=== PATIENT | female | born 1985 | race Caucasian/White ===

== ENCOUNTER 2016-11-20 17:12 | Emergency (ER) | payer OTHER ==
[~2016-11-20] VITALS: Ht 154.9 cm; Wt 45.6 kg
[~2016-11-20 17:12] MED LIST: FERR325T PO; MEDR150I IM
[2016-11-20 17:14] VITALS: BP 124/84; PULSE 101; TEMP 36.9; O2SAT 100; Ht 154.9 cm; Wt 45.6 kg
[2016-11-20] MEDS ORDERED: DEXAMETHASONE SOD INJ 10 MG/ML VIAL IM ONE (17:30)
[2016-11-20] MEDS ORDERED: MEDR150I19 IM (17:34)
--- NOTE | 2016-11-20 17:53 | EMERGENCY ROOM VISIT NOTE ---
History First contact with patient: 17:19 Chief Complaint: BITE Stated Complaint: CAT BITE History of Present Illness The patient is a 31 year old female who presents to the Emergency Room with complaints of bite. The patient presents to the emergency department with what she believes is a bite. She states that she was shopping today and did not notice any injury or bite. She states when she got home she began to develop itching and discomfort to the right lateral thigh. He states that since this occurred at 10:30 AM she has developed an area of ecchymosis. There is not any significant ulceration. She does not have any drainage. She has not had any chest or trouble breathing. She did not see anything bite her. She denies injury. Review of Systems A 10 system review of systems was completed with positives and pertinent negatives listed in the HPI. Past Medical/Surgical History Medical Problems: (1) Labor check (2) Vaginal delivery Surgical Problems: (1) H/O knee surgery Family History Cancer Heart disease Hypertension Social History Smoking Status: Never Smoker Alcohol Use: none Marital Status: Housing Status: lives with family Occupation Status: unemployed Current/Historical Medications Scheduled Medroxyprogesterone Acetate (C (Medroxyprogesterone Aceta), 150 MG IM Q3MO Physical Exam Vital Signs Date Time Temp Pulse Resp B/P (MAP) Pulse Ox O2 Delivery O2 Flow Rate FiO2 11/20/16 17:14 36.9 101 18 124/84 100 Room Air Physical Exam VITALS: Vitals are noted on the nurse's note and reviewed by myself. Vital signs stable. GENERAL: This is a 31 year old female, in no acute distress, nondiaphoretic, well-developed well-nourished. SKIN: There is a small open area without ulceration to the right lateral thigh. There is minimal surrounding ecchymosis without erythema. There is no fluctuance , drainage or lymphangitic streaking. There is no tenting of the skin. Capillary reflex less than 2 seconds. HEAD: Normocephalic atraumatic. EARS: The external ears are normal in appearance EYES: Pupils equal round and reactive to light and accommodation. Conjunctivae without injection, sclerae without icterus. Extraocular movements intact. NOSE: Patent, turbinates without inflammation or discharge. MOUTH: Mucous membranes moist. NECK: Supple without nuchal rigidity. No JVD. HEART: Regular rate and rhythm without murmurs gallops or rubs. LUNGS: Clear to auscultation bilaterally without wheezes, rales or rhonchi. No retractions or accessory muscle use. MUSCULOSKELETAL: No muscle atrophy, erythema, or edema noted. Full range of motion without joint tenderness in all extremities. minimal tenderness to the area of ecchymosis. Normal gait. Strength 5/5 throughout. NEURO: Patient was alert and oriented to person place and time. No focal neurological deficits. Medical Decision & Procedures Laboratory Results Test 11/20/16 18:15 Medications Administered Medications (Trade) Dose Ordered Sig/Carmen Route Start Time Stop Time Status Last Admin Dose Admin Dexamethasone Sodium Phosphate (Decadron Inj) 10 mg NOW ONCE IM 11/20/16 17:30 11/20/16 17:31 DC 11/20/16 17:37 10 MG Diphenhydramine HCl (Benadryl Cap) 25 mg NOW ONCE PO 11/20/16 17:30 11/20/16 17:31 DC 11/20/16 17:37 25 MG ED Course The patient was seen and examined. Previous visits were reviewed. The patient presents with what she believes was an insect bite. She does not recall seeing any insect. She states that that her right thigh became itchy earlier today read she then developed some ecchymosis around it. She states she did not get injured. She states she did not squeeze the area. There is no significant ulceration. There is no significant warmth. There is no fluctuance or drainage. The exact etiology is not clear. The patient was given IM Decadron and oral Benadryl in the emergency department. She stated it was feeling slightly improved. The patient also had a Lyme titer drawn. The area was outlined with a surgical marker. She was advised to watch the area closely over the next 24-48 hours. She should return to the ER if it is worsening. She should follow-up with her family doctor by the end of the week or early next week if it's not resolving. Medical Decision The differential diagnosis includes insect bite, Lyme disease, traumatic injury , among others Impression Primary Impression: Insect bite Departure Information Dispostion Home / Self-Care Condition GOOD Referrals Chayo Hooker D.O. (PCP) Patient Instructions ED Bite Insect, ED Bite Insect Brown Recluse Spider, ED Bite Sting Insect Local Allergic React, My [facility] Additional Instructions Return with worsening swelling, redness or ulceration We will contact you if the lyme test comes back positive Otherwise, recheck with your family doctor in the next week
[2016-11-20 19:20] LABS: LYME DISEASE AB IGG NEG (NEG); LYME DISEASE AB IGM NEG (NEG)
== END 2016-11-20 18:38 | disposition home or self-care (01) ==
LOC: C.EDB 17:13 → C.EDD 18:38
DX: S70.361A Insect bite (nonvenomous), right thigh, initial encounter (principal); W57.XXXA Bitten or stung by nonvenomous insect and other nonvenomous arthropods, initial encounter; Z98.890 Other specified postprocedural states; Z82.49 Family history of ischemic heart disease and other diseases of the circulatory system

== ENCOUNTER 2017-08-04 12:43 | Emergency (ER) | payer OTHER ==
[~2017-08-04 12:43] MED LIST changes: -FERR325T PO; -MEDR150I IM; +MEDR150I19 IM
[2017-08-04 12:49] VITALS: TEMP 36.8
--- NOTE | 2017-08-04 13:43 | EMERGENCY ROOM VISIT NOTE ---
History First contact with patient: 13:03 Chief Complaint: OTHER COMPLAINT Stated Complaint: MISCARRIAGE History of Present Illness The patient is a 31 year old female who presents to the Emergency Room with complaints of a possible miscarriage. The patient is a . She reportedly had a positive test 6 days ago. She took one again this morning, which was negative. She denies any vaginal bleeding or abdominal cramping. No fever or chills. No urinary symptoms. She denies any vaginal discharge. The patient was taken off Depo May 31. She has not had a period since being taking off of this medication. She also notes breast tenderness and nipple discharge bilaterally for the last week. Review of Systems 10 system review performed and negative unless noted in HPI or below Past Medical/Surgical History Medical Problems: (1) Labor check (2) Vaginal delivery Surgical Problems: (1) H/O knee surgery Family History Cancer Heart disease Hypertension Social History Smoking Status: Never Smoker Alcohol Use: none Marital Status: Housing Status: lives with family Occupation Status: unemployed Current/Historical Medications No Active Prescriptions or Reported Meds Physical Exam Vital Signs Date Time Temp Pulse Resp B/P (MAP) Pulse Ox O2 Delivery O2 Flow Rate FiO2 08/04/17 15:25 99 16 125/79 100 08/04/17 12:49 36.8 119 16 146/94 99 Room Air Physical Exam VITALS: Vitals are noted on the nurse's note and reviewed by myself. Vital signs stable. GENERAL: 31-year-old female, in no acute distress, nondiaphoretic, well- developed well-nourished. SKIN: The skin was without rashes, erythema, edema, or bruising. HEAD: Normocephalic atraumatic. MOUTH: Mucous membranes moist. T NECK: Supple without nuchal rigidity. No lymphadenopathy. Cervical spine is nontender. No JVD. HEART: Regular rate and rhythm without murmurs gallops or rubs. LUNGS: Clear to auscultation bilaterally without wheezes, rales or rhonchi. No accessory muscle use. ABDOMEN: Positive bowel sounds x 4.Soft, nontender, without organomegaly. No guarding or rebound tenderness. MUSCULOSKELETAL: No muscle atrophy, erythema, or edema noted. Strength 5/5 throughout. NEURO: Patient was alert and oriented to person place and time. Normal sensation to touch. No focal neurological deficits. Medical Decision & Procedures ER Provider Diagnostic Interpretation: Pelvic ultrasound IMPRESSION: 1. No evidence of intrauterine gestation. Normal endometrial stripe 2. 7 mm fundal fibroid 3. Normal ovaries Electronically signed by: Yung Jefferson M.D. 08/04/2017 2:44 PM Laboratory Results 08/04/17 13:37 Red Blood Count 4.58, Mean Corpuscular Volume 90.4, Mean Corpuscular Hemoglobin 31.2, Mean Corpuscular Hemoglobin Concent 34.5, Mean Platelet Volume 9.5, Neutrophils (%) (Auto) 70.5, Lymphocytes (%) (Auto) 20.8, Monocytes (%) (Auto) 6.8, Eosinophils (%) (Auto) 1.0, Basophils (%) (Auto) 0.8, Neutrophils # (Auto) 5.42, Lymphocytes # (Auto) 1.60, Monocytes # (Auto) 0.52, Eosinophils # (Auto) 0.08, Basophils # (Auto) 0.06 08/04/17 13:37 Test 08/04/17 13:37 08/04/17 13:50 White Blood Count 7.69 K/uL (4.8-10.8) Red Blood Count 4.58 M/uL (4.2-5.4) Hemoglobin 14.3 g/dL (12.0-16.0) Hematocrit 41.4 % (37-47) Mean Corpuscular Volume 90.4 fL (80-100) Mean Corpuscular Hemoglobin 31.2 pg (25-34) Mean Corpuscular Hemoglobin Concent 34.5 g/dl (32-36) Platelet Count 276 K/uL (130-400) Mean Platelet Volume 9.5 fL (7.4-10.4) Neutrophils (%) (Auto) 70.5 % Lymphocytes (%) (Auto) 20.8 % Monocytes (%) (Auto) 6.8 % Eosinophils (%) (Auto) 1.0 % Basophils (%) (Auto) 0.8 % Neutrophils # (Auto) 5.42 K/uL (1.4-6.5) Lymphocytes # (Auto) 1.60 K/uL (1.2-3.4) Monocytes # (Auto) 0.52 K/uL (0.11-0.59) Eosinophils # (Auto) 0.08 K/uL (0-0.5) Basophils # (Auto) 0.06 K/uL (0-0.2) RDW Standard Deviation 40.3 fL (36.4-46.3) RDW Coefficient of Variation 12.2 % (11.5-14.5) Immature Granulocyte % (Auto) 0.1 % Immature Granulocyte # (Auto) 0.01 K/uL (0.00-0.02) Anion Gap 8.0 mmol/L (3-11) Estimated GFR () 73.7 Estimated GFR (Non- 63.6 BUN/Creatinine Ratio 9.1 (10-20) Calcium Level 8.4 mg/dl (8.5-10.1) Human Chorionic Gonadotropin, Quant < 1 mIU/mL Urine Color YELLOW Urine Appearance CLEAR (CLEAR) Urine pH 8.5 (4.5-7.5) Urine Specific [place] 1.012 (1.000-1.030) Urine Protein NEG (NEG) Urine Glucose (UA) NEG (NEG) Urine Ketones NEG (NEG) Urine Occult Blood NEG (NEG) Urine Nitrite NEG (NEG) Urine Bilirubin NEG (NEG) Urine Urobilinogen NEG (NEG) Urine Leukocyte Esterase NEG (NEG) ED Course Patient was seen and examined Vital signs including blood pressure were reviewed medications list was verified with patient Labs were obtained, and a saline lock was established The patient declined any pain medication Imaging was performed and reviewed Upon reevaluation, we discussed her results. She was resting comfortably. She voiced understanding. She was comfortable being discharged home. I reviewed discharge instructions the patient. They voiced understanding and had no further questions. Medical Decision Differential diagnosis: Threatened miscarriage, incomplete miscarriage, ectopic , molar This patient is a 31-year-old female that presents to the emergency department with a positive test 6 days ago, and negative one today. No vaginal bleeding or abdominal pain. On exam, her abdomen was benign. Labs revealed a negative test. Ultrasound was unremarkable except for a small uterine fibroid. These findings were discussed with the patient at length. She voiced understanding. She will follow-up with her LEASING ASSISTANT as needed. She agrees to return with any new or concerning symptoms This chart was completed in part utilizing [employer] Voice Recognition software. Attempts were made to minimize the grammatical errors, random word insertions, pronoun errors and incomplete sentences. Any formal questions or concerns about the content, text or information contained within the body of this dictation should be directly addressed to the provider for clarification. Medication Reconcilliation Current Medication List: was personally reviewed by me Blood Pressure Screening Patient's blood pressure: Elevated blood pressure Blood pressure disposition: Elevated BP felt to be situational Impression Primary Impression: test negative Departure Information Dispostion Home / Self-Care Condition GOOD Prescriptions No Active Prescriptions or Reported Meds Referrals Chayo Hooker D.O. (PCP) Patient Instructions My [facility] Additional Instructions You were evaluated in the emergency department for possible . A blood test was performed and negative. An ultrasound showed a very small uterine fibroid. Otherwise, it was normal. Please follow-up with your primary care physician and your OB doctor as needed Do not hesitate to return to the emergency department with any new, worsening or concerning symptoms It was a pleasure participating in your care today
[2017-08-04 13:54] LABS: BASO % 0.8 %; BASO ABS # 0.06 K/uL (0-0.2); EOS ABS # 0.08 K/uL (0-0.5); HEMATOCRIT 41.4 % (37-47); HEMOGLOBIN 14.3 g/dL (12.0-16.0); IG# 0.01 K/uL (0.00-0.02); LYMPH % 20.8 %; MEAN CELL VOLUME 90.4 fL (80-100); MEAN CORPUSCULAR HEMOGLOBIN 31.2 pg (25-34); MEAN CORPUSCULAR HGB CONC 34.5 g/dl (32-36); MEAN PLATELET VOLUME 9.5 fL (7.4-10.4); MONO % 6.8 %; MONO ABS # 0.52 K/uL (0.11-0.59); NEUT % 70.5 %; NEUT ABS # 5.42 K/uL (1.4-6.5); PLATELET COUNT 276 K/uL (130-400); RED CELL DISTRIBUTION WIDTH CV 12.2 % (11.5-14.5); RED CELL DISTRIBUTION WIDTH SD 40.3 fL (36.4-46.3); WHITE BLOOD COUNT 7.69 K/uL (4.8-10.8)
[2017-08-04 14:10] LABS: BLOOD UREA NITROGEN 10 mg/dl (7-18); CALCIUM 8.4 mg/dl (8.5-10.1); CARBON DIOXIDE 26 mmol/L (21-32); CREATININE 1.14 mg/dl (0.60-1.20); GLUCOSE 80 mg/dl (70-99); POTASSIUM 3.2 mmol/L (3.5-5.1); SODIUM 140 mmol/L (136-145)
--- NOTE | 2017-08-04 14:45 | DIAGNOSTIC IMAGING REPORT ---
EXAMINATION: PELVIC ULTRASOUND (transabdominal and endovaginal scanning) CLINICAL HISTORY: Possible miscarriage COMPARISON STUDY: ultrasound performed November 2013 FINDINGS: The uterus measured 70 x 31 x 46 mm. There is a probable 7 mm fundal fibroid. The endometrial stripe measured 3 mm. The right ovary measured 29 x 16 x 19 mm. The left ovary measured 28 x 18 x 19 mm. There is no ultrasonographic evidence of ovarian torsion. It should be noted that ovarian torsion can be present with normal Doppler ultrasonographic findings. There was no evidence of pathologic free pelvic fluid. IMPRESSION: 1. No evidence of intrauterine gestation. Normal endometrial stripe 2. 7 mm fundal fibroid 3. Normal ovaries Electronically signed by: Yung Jefferson M.D. 08/04/2017 2:44 PM Dictated Date/Time: 08/04/2017 2:41 PM
[2017-08-04 15:25] VITALS: BP 125/79; PULSE 99; O2SAT 100
== END 2017-08-04 15:26 | disposition home or self-care (01) ==
LOC: C.EDB 12:45
DX: O02.1 Missed abortion (principal); D25.9 Leiomyoma of uterus, unspecified

== ENCOUNTER 2017-12-18 16:31 | Emergency (ER) | payer OTHER ==
[~2017-12-18] VITALS: Ht 154.9 cm; Wt 56.0 kg
[2017-12-18 16:38] VITALS: Ht 154.9 cm; Wt 56.0 kg
[2017-12-18] MEDS ORDERED: SODIUM CHLORIDE 0.9% 1000ML 1,000 ML IV STA (17:26)
--- NOTE | 2017-12-18 17:40 | EMERGENCY ROOM VISIT NOTE ---
History Report prepared by Premibradha: Ximena Shane Under the Supervision of: Dr. Kyle Reyes D.O. First contact with patient: 16:59 Chief Complaint: FALL Stated Complaint: FELL, HIT HEAD BACK AND STOMACH History of Present Illness The patient is a 32 year old female who presents to the Emergency Room after a fall that occurred about an hour prior to arrival. The patient states that she was standing and her left knee buckled, which she states is common for her after having four major surgeries. She denies any loss of consciousness and states that she remembers the whole fall. The patient states that she fell forward and then hit her back and left side of her head. She states that she had headaches and felt nauseous at the time of the fall, but denies any neck pain or chest pain. The patient states that she has abdominal pain. She denies any blood in her urine. Source of History: patient Onset: one hour prior to arrival Position: other (generalized ) Quality: other (fall ) Timing: resolved Associated Symptoms: + headache, + nausea, + abdominal pain, No LOC, No neck pain, No chest pain Review of Systems See HPI for pertinent positives & negatives. A total of 10 systems reviewed and were otherwise negative. Past Medical & Surgical Medical Problems: (1) Labor check (2) Vaginal delivery Surgical Problems: (1) H/O knee surgery Family History Cancer Heart disease Hypertension Social History Smoking Status: Never Smoker Alcohol Use: none Marital Status: Housing Status: lives with family Occupation Status: unemployed Current/Historical Medications No Active Prescriptions or Reported Meds Allergies Coded Allergies: Erythromycin (Verified Allergy, Mild, HIVES, 12/18/17) Ibuprofen (Unverified Adverse Reaction, Unknown, difficulty breathing, ) Physical Exam Vital Signs Date Time Temp Pulse Resp B/P (MAP) Pulse Ox O2 Delivery O2 Flow Rate FiO2 12/18/17 19:28 81 18 109/99 100 12/18/17 19:00 36.9 81 18 109/99 100 Room Air 12/18/17 16:38 88 20 126/87 99 Room Air Physical Exam GENERAL: alert, well appearing, well nourished, no distress, non-toxic HEAD: normal cephalic, atraumatic EYE EXAM: normal conjunctiva, PERRL and EOM's grossly intact OROPHARYNX: no exudate, no erythema, lips, buccal mucosa, and tongue normal and mucous membranes are moist EARS: TMs clear b/l NECK: supple, no nuchal rigidity, no adenopathy, non-tender CHEST: stable to compression anteriorly and posteriorly LUNGS: clear to auscultation. Normal chest wall mechanics HEART: no murmurs, S1 normal and S2 normal ABDOMEN: abdomen soft, non-tender, normo-active bowel sounds, no masses, no rebound or guarding. PELVIS: stable to compression anteriorly and posteriorly BACK: Back is symmetrical on inspection and there is no deformity, no CVA tenderness. Minimal C-spine tenderness in the lower C-spine UPPER EXTREMITIES: full active and passive range of motion of all joints without tenderness to palpation LOWER EXTREMITIES: full active and passive range of motion of all joints without tenderness to palpation NEURO EXAM: Normal sensorium, cranial nerves II-XII grossly intact, normal speech, no gross weakness of arms, no gross weakness of legs. GCS: 15. FAST: bedside ultrasound was negative. Medical Decision & Procedures ER Provider Diagnostic Interpretation: Radiology results as stated below per my review and the radiologist's interpretation: HEAD WITHOUT CONTRAST (CT) CLINICAL HISTORY: 32 years-old Female presenting with fall hit head. TECHNIQUE: Multidetector CT imaging of the head was performed without the use of intravenous contrast. IV contrast: None. A dose lowering technique was used consistent with the principles of ALARA (as low as reasonably achievable). COMPARISON: None. CT DOSE (mGy.cm): The estimated cumulative dose is 668.80 mGy.cm. 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 Ventricles and sulci normal in size. Brain parenchyma normal in appearance with preserved ordonez-white differentiation. No mass effect or midline shift. No hemorrhage or acute territorial infarct. No extra-axial fluid collection. Paranasal sinuses and mastoid air cells clear. Calvarium intact. IMPRESSION: 1. No acute intracranial abnormality. Electronically signed by: Torin Vicente M.D. 12/18/2017 6:53 PM Dictated Date/Time: 12/18/2017 6:51 PM CERVICAL SPINE W/O CLINICAL HISTORY: 32 years-old Female presenting with fall neck pain . TECHNIQUE: Multidetector CT of the cervical spine was performed without the use of intravenous contrast. IV contrast: None. A dose lowering technique was used consistent with the principles of ALARA (as low as reasonably achievable). COMPARISON: None. CT DOSE (mGy.cm): The estimated cumulative dose is 668.80. 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 Straightening of normal cervical lordosis likely positional. Vertebral bodies maintain normal height and alignment. Intervertebral disc heights preserved. Small disc osteophyte complexes noted in the lower cervical and upper thoracic spine. No advanced degenerative change of the cervical spine. No osseous neural foraminal or spinal canal narrowing. No acute fracture or subluxation. Skull base intact. Lung apices clear. Paraspinal soft tissues within normal limits allowing for noncontrast technique. IMPRESSION: No acute osseous injury of the cervical spine. Electronically signed by: Torin Vicente M.D. 12/18/2017 6:56 PM Dictated Date/Time: 12/18/2017 6:53 PM Laboratory Results 12/18/17 17:59 Red Blood Count 4.36, Mean Corpuscular Volume 90.8, Mean Corpuscular Hemoglobin 30.7, Mean Corpuscular Hemoglobin Concent 33.8, Mean Platelet Volume 9.6, Neutrophils (%) (Auto) 57.8, Lymphocytes (%) (Auto) 32.0, Monocytes (%) (Auto) 6.6, Eosinophils (%) (Auto) 2.6, Basophils (%) (Auto) 0.9, Neutrophils # (Auto) 3.96, Lymphocytes # (Auto) 2.19, Monocytes # (Auto) 0.45, Eosinophils # (Auto) 0.18, Basophils # (Auto) 0.06 12/18/17 17:59 Test 12/18/17 17:46 12/18/17 17:59 Urine Color YELLOW Urine Appearance CLEAR (CLEAR) Urine pH 6.5 (4.5-7.5) Urine Specific Engelhard 1.012 (1.000-1.030) Urine Protein NEG (NEG) Urine Glucose (UA) NEG (NEG) Urine Ketones NEG (NEG) Urine Occult Blood NEG (NEG) Urine Nitrite NEG (NEG) Urine Bilirubin NEG (NEG) Urine Urobilinogen NEG (NEG) Urine Leukocyte Esterase NEG (NEG) Urine WBC (Auto) 1-5 /hpf (0-5) Urine RBC (Auto) 0-4 /hpf (0-4) Urine Hyaline Casts (Auto) 1-5 /lpf (0-5) Urine Epithelial Cells (Auto) 5-10 /lpf (0-5) Urine Bacteria (Auto) NEG (NEG) Urine Test NEG (NEG) White Blood Count 6.85 K/uL (4.8-10.8) Red Blood Count 4.36 M/uL (4.2-5.4) Hemoglobin 13.4 g/dL (12.0-16.0) Hematocrit 39.6 % (37-47) Mean Corpuscular Volume 90.8 fL (80-100) Mean Corpuscular Hemoglobin 30.7 pg (25-34) Mean Corpuscular Hemoglobin Concent 33.8 g/dl (32-36) Platelet Count 281 K/uL (130-400) Mean Platelet Volume 9.6 fL (7.4-10.4) Neutrophils (%) (Auto) 57.8 % Lymphocytes (%) (Auto) 32.0 % Monocytes (%) (Auto) 6.6 % Eosinophils (%) (Auto) 2.6 % Basophils (%) (Auto) 0.9 % Neutrophils # (Auto) 3.96 K/uL (1.4-6.5) Lymphocytes # (Auto) 2.19 K/uL (1.2-3.4) Monocytes # (Auto) 0.45 K/uL (0.11-0.59) Eosinophils # (Auto) 0.18 K/uL (0-0.5) Basophils # (Auto) 0.06 K/uL (0-0.2) RDW Standard Deviation 41.5 fL (36.4-46.3) RDW Coefficient of Variation 12.5 % (11.5-14.5) Immature Granulocyte % (Auto) 0.1 % Immature Granulocyte # (Auto) 0.01 K/uL (0.00-0.02) Anion Gap 7.0 mmol/L (3-11) Est Creatinine Clear Calc Drug Dose 69.3 ml/min Estimated GFR () 101.4 Estimated GFR (Non- 87.5 BUN/Creatinine Ratio 12.5 (10-20) Calcium Level 8.9 mg/dl (8.5-10.1) Total Bilirubin 0.3 mg/dl (0.2-1) Direct Bilirubin < 0.1 mg/dl (0-0.2) Aspartate Amino Transf (AST/SGOT) 17 U/L (15-37) Alanine Aminotransferase (ALT/SGPT) 21 U/L (12-78) Alkaline Phosphatase 65 U/L (45-117) Total Protein 7.7 gm/dl (6.4-8.2) Albumin 4.0 gm/dl (3.4-5.0) Lipase 190 U/L (73-393) Laboratory results per my review. Medications Administered Medications (Trade) Dose Ordered Sig/Carmen Route Start Time Stop Time Status Last Admin Dose Admin Sodium Chloride 1,000 ml @ 999 mls/hr Q1H1M STAT IV 12/18/17 17:26 12/18/17 18:26 DC 12/18/17 18:05 999 MLS/HR Ondansetron HCl (Zofran Inj) 4 mg NOW STAT IV 12/18/17 18:21 12/18/17 18:22 DC 12/18/17 18:24 4 MG ED Course ED COURSE: Vital signs were reviewed and showed normal The patients medical record was reviewed The above diagnostic studies were performed and reviewed. ED treatments and interventions as stated above. 1717: The patient was evaluated in room C12B. A complete history and physical examination was performed. 1726: Ordered Sodium Chloride 1000 ml @ 999 mls/hr. 1821: Ordered Zofran Inj 4 mg IV. 1922: Upon reevaluation, the patient is doing better. I discussed my findings with the patient and she understands and agrees with the treatment plan. Based on the patients age, coexisting illnesses, exam and lab findings the decision to treat as an outpatient was made. The patient remained stable while under my care. The patient appeared well at the time of discharge. Medical Decision Differential diagnoses include major intracranial, cervical, spinal, thoracic, abdominal, pelvic and neurologic injury. Fracture, contusion, sprain, strain, laceration, abrasions included as well. Patient is a 31-year-old female who presents the ER for mechanical fall which occurred at 4 PM. She notes that her left knee gave out. She notes this happens regularly secondary to 4 previous surgeries on her left knee. She comes in complaining of a mild headache, lower cervical spine tenderness and left lower abdominal pain. She notes she is able to ambulate without difficulty. Trauma exam is otherwise unremarkable. Bedside ultrasound FAST was neg. CBC along with BMP, LFTs, bilirubin lipase along with UA and was negative. CT head and cervical spine was unremarkable. Patient was updated bedside. Discussed with Pt concerning signs and symptoms to watch out for. Pt was instructed to follow up with their PCP and discussed with the patient their option to return to the ED at anytime for persistent or worsening symptoms. The appropriate anticipatory guidance and out-patient management, including indications for return to the emergency department, were explained at length to the patient and understood. Medication Reconcilliation Current Medication List: was personally reviewed by me Blood Pressure Screening Patient's blood pressure: Normal blood pressure Impression Primary Impression: Fall Additional Impression: Neck pain Scribe Attestation The scribe's documentation has been prepared under my direction and personally reviewed by me in its entirety. I confirm that the note above accurately reflects all work, treatment, procedures, and medical decision making performed by me. Departure Information Dispostion Home / Self-Care Prescriptions No Active Prescriptions or Reported Meds Referrals Chayo Hooker D.O. (PCP) Forms HOME CARE DOCUMENTATION FORM, IMPORTANT VISIT INFORMATION Patient Instructions My [facility] Additional Instructions Please follow up with your primary care doctor with in the next 24 hours. Any worsening of your symptoms, please return to the ED immediately. This includes any fevers greater than 100.4, worsening pain, chest pain, shortness breath, persistent nausea, vomiting, unable to eat or drink, or any other concerning signs or symptoms from your standpoint. Please take Tylenol or Motrin as needed for pain. Problem Qualifiers Primary Impression: Fall Encounter type: initial encounter Qualified Codes: W19.XXXA - Unspecified fall, initial encounter
[2017-12-18 18:10] LABS: BASO % 0.9 %; BASO ABS # 0.06 K/uL (0-0.2); EOS % 2.6 %; EOS ABS # 0.18 K/uL (0-0.5); HEMATOCRIT 39.6 % (37-47); HEMOGLOBIN 13.4 g/dL (12.0-16.0); IG# 0.01 K/uL (0.00-0.02); LYMPH ABS # 2.19 K/uL (1.2-3.4); MEAN CELL VOLUME 90.8 fL (80-100); MEAN CORPUSCULAR HEMOGLOBIN 30.7 pg (25-34); MEAN CORPUSCULAR HGB CONC 33.8 g/dl (32-36); MEAN PLATELET VOLUME 9.6 fL (7.4-10.4); MONO % 6.6 %; MONO ABS # 0.45 K/uL (0.11-0.59); NEUT % 57.8 %; NEUT ABS # 3.96 K/uL (1.4-6.5); PLATELET COUNT 281 K/uL (130-400); RED CELL DISTRIBUTION WIDTH CV 12.5 % (11.5-14.5); RED CELL DISTRIBUTION WIDTH SD 41.5 fL (36.4-46.3); WHITE BLOOD COUNT 6.85 K/uL (4.8-10.8)
[2017-12-18] MEDS ORDERED: ONDANSETRON INJ 2 MG/ML 2 ML VIAL IV STA (18:21)
[2017-12-18 18:34] LABS: ALKALINE PHOSPHATASE 65 U/L (45-117); ALT/SGPT 21 U/L (12-78); AST/SGOT 17 U/L (15-37); BLOOD UREA NITROGEN 11 mg/dl (7-18); CALCIUM 8.9 mg/dl (8.5-10.1); CARBON DIOXIDE 29 mmol/L (21-32); CREATININE 0.87 mg/dl (0.60-1.20); GLUCOSE 100 mg/dl (70-99); LIPASE 190 U/L (73-393); POTASSIUM 3.6 mmol/L (3.5-5.1); SODIUM 141 mmol/L (136-145); TOTAL PROTEIN 7.7 gm/dl (6.4-8.2)
--- NOTE | 2017-12-18 18:54 | DIAGNOSTIC IMAGING REPORT ---
HEAD WITHOUT CONTRAST (CT) CLINICAL HISTORY: 32 years-old Female presenting with fall hit head. TECHNIQUE: Multidetector CT imaging of the head was performed without the use of intravenous contrast. IV contrast: None. A dose lowering technique was used consistent with the principles of ALARA (as low as reasonably achievable). COMPARISON: None. CT DOSE (mGy.cm): The estimated cumulative dose is 668.80 mGy.cm. 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 Ventricles and sulci normal in size. Brain parenchyma normal in appearance with preserved ordonez-white differentiation. No mass effect or midline shift. No hemorrhage or acute territorial infarct. No extra-axial fluid collection. Paranasal sinuses and mastoid air cells clear. Calvarium intact. IMPRESSION: 1. No acute intracranial abnormality. Electronically signed by: Torin Vicente M.D. 12/18/2017 6:53 PM Dictated Date/Time: 12/18/2017 6:51 PM
--- NOTE | 2017-12-18 18:57 | DIAGNOSTIC IMAGING REPORT ---
CERVICAL SPINE W/O CLINICAL HISTORY: 32 years-old Female presenting with fall neck pain . TECHNIQUE: Multidetector CT of the cervical spine was performed without the use of intravenous contrast. IV contrast: None. A dose lowering technique was used consistent with the principles of ALARA (as low as reasonably achievable). COMPARISON: None. CT DOSE (mGy.cm): The estimated cumulative dose is 668.80. FINDINGS: Tank Builder Supervisor topogram: Unremarkable. Straightening of normal cervical lordosis likely positional. Vertebral bodies maintain normal height and alignment. Intervertebral disc heights preserved. Small disc osteophyte complexes noted in the lower cervical and upper thoracic spine. No advanced degenerative change of the cervical spine. No osseous neural foraminal or spinal canal narrowing. No acute fracture or subluxation. Skull base intact. Lung apices clear. Paraspinal soft tissues within normal limits allowing for noncontrast technique. IMPRESSION: No acute osseous injury of the cervical spine. Electronically signed by: Torin Vicente M.D. 12/18/2017 6:56 PM Dictated Date/Time: 12/18/2017 6:53 PM
[2017-12-18 19:00] VITALS: TEMP 36.9
[2017-12-18 19:28] VITALS: BP 109/99; PULSE 81; O2SAT 100
== END 2017-12-18 19:29 | disposition home or self-care (01) ==
LOC: C.EDB 16:32 → C.EDC 19:29
DX: M54.2 Cervicalgia (principal); W19.XXXA Unspecified fall, initial encounter; Z88.8 Allergy status to other drugs, medicaments and biological substances